=== PATIENT | female | born 1960 | race Native Hawaiian/Other Pacific Islander ===

== ENCOUNTER 2017-05-30 12:34 | Outpatient (CLI) | payer BC | END 2017-05-30 19:57 | disposition home or self-care (01) | LOC: RAD 12:34 | DX: J11.1 Influenza due to unidentified influenza virus with other respiratory manifestations (principal) ==

== ENCOUNTER 2017-11-30 12:06 | Outpatient (CLI) | payer BC | END 2017-11-30 22:32 | disposition home or self-care (01) | LOC: RAD 12:06 | DX: M79.672 Pain in left foot (principal) ==

== ENCOUNTER 2020-08-11 14:56 | Outpatient (CLI) | payer BC, OTHER | END 2020-08-11 23:01 | disposition home or self-care (01) | LOC: INF 14:56 | PROVIDERS: ATTEND Internal Medicine | DX: Z23 Encounter for immunization (principal) | CPT/HCPCS: 96372 ==

== ENCOUNTER 2020-09-02 14:58 | Outpatient (CLI) | payer BC, OTHER | END 2020-09-02 19:57 | disposition home or self-care (01) | LOC: INF 14:58 | PROVIDERS: ATTEND Internal Medicine | DX: Z23 Encounter for immunization (principal) | CPT/HCPCS: 96372 ==

== ENCOUNTER 2021-05-03 15:00 | Outpatient (CLI) | payer BC | END 2021-05-03 18:54 | disposition home or self-care (01) | LOC: RAD 15:00 | PROVIDERS: ATTEND Orthopaedic Surgery | DX: M25.562 Pain in left knee (principal) ==